=== PATIENT | female | born 1975 | race Caucasian/White ===

== ENCOUNTER 2021-03-22 10:50 | Outpatient (CLI) | payer BC, SELFPAY ==
--- NOTE | ~2021-03-22 | MM_ITS ---
EXAMINATION: MM screening [facility] BI w alessio HISTORY: Screening mammogram TECHNIQUE: Craniocaudal and mediolateral oblique 3-D tomosynthesis images were obtained and synthetic 2-D images were generated. CAD analysis was submitted and interpreted. COMPARISON: 12/30/2018 [id number] BREAST PARENCHYMAL COMPOSITION: There are scattered areas of fibroglandular density. FINDINGS: There is no evidence of suspicious mass, calcification, or architectural distortion to sugg est malignancy in either breast. There has been no suspicious interval change. IMPRESSION: 1. No mammographic evidence of malignancy. 2. Recommend routine screening mammography in one year. BI-RADS Category 1: Negative Reviewed, dictated and finalized at location A.
== END 2021-03-22 10:51 | disposition home or self-care (01) ==
LOC: ANHIMG 10:53
PROVIDERS: PCP Family Medicine; Visit Provider Nurse Practitioner Family
DX: Z12.31 Encounter for screening mammogram for malignant neoplasm of breast (principal)
CPT/HCPCS: 77063; 77067

== ENCOUNTER 2023-03-16 07:58 | Outpatient (CLI) | payer BC, SELFPAY ==
--- NOTE | ~2023-03-16 | MM_ITS ---
EXAMINATION: MM screening [facility] BI w alessio HISTORY: Screening mammogram TECHNIQUE: Craniocaudal and mediolateral oblique 3-D tomosynthesis images were obtained and synthetic 2-D images were generated. CAD analysis was submitted and interpreted. COMPARISON: March 22, 2021, December 30, 2018 bilateral screening mammogram examinations BREAST PARENCHYMAL COMPOSITION: There are scattered areas of fibroglandular density. FINDINGS: There is no evidence of suspicious mass, calcification, or architectural distortion to sugg est malignancy in either breast. There has been no suspicious interval change. IMPRESSION: 1. No mammographic evidence of malignancy. 2. Recommend routine screening mammography in one year. BI-RADS Category 1: Negative Reviewed, dictated and finalized at location B.
== END 2023-03-16 07:59 | disposition home or self-care (01) ==
LOC: ANHIMG 07:59
PROVIDERS: PCP Family Medicine; Visit Provider Physician Assistant
DX: Z12.31 Encounter for screening mammogram for malignant neoplasm of breast (principal)
CPT/HCPCS: 77063; 77067

== ENCOUNTER 2024-01-26 09:08 | Outpatient (CLI) | payer BC, SELFPAY ==
[2024-01-26 09:58] LABS: Strep Group A RT-PCR NOT DETECTED (Negative)
[2024-01-26 10:33] LABS: Influenza A QL RT-PCR Negative (Negative); Influenza B QL RT-PCR Negative (Negative); RSV RNA, RT-PCR Negative (Negative); SARS-CoV-2 RNA PCR Negative (Negative)
== END 2024-01-26 09:09 | disposition home or self-care (01) ==
LOC: ANHLAB 09:10
PROVIDERS: PCP Family Medicine; Visit Provider Physician Assistant
DX: R50.9 Fever, unspecified (principal); J02.9 Acute pharyngitis, unspecified; Z20.822 Contact with and (suspected) exposure to COVID-19
CPT/HCPCS: 87637; 87651

== ENCOUNTER 2024-06-01 10:07 | Outpatient (CLI) | payer BC, SELFPAY ==
--- NOTE | ~2024-06-01 | MM_ITS ---
EXAMINATION: MM screening [facility] BI w alessio HISTORY: Screening mammogram TECHNIQUE: Craniocaudal and mediolateral oblique 3-D tomosynthesis images were obtained and synthetic 2-D images were generated. CAD analysis was submitted and interpreted. COMPARISON: 03/16/2023, 03/22/2021, 12/30/2018 BREAST PARENCHYMAL COMPOSITION:Not Dense. There are scattered areas of fibroglandular density. FINDINGS: No suspicious mass, calcification, or architectural distortion are identified in either adilson ast to suggest malignancy. There has been no suspicious interval change. IMPRESSION: No mammographic evidence of malignancy. Recommend routine screening mammography in one year. BI-RADS Category 1: Negative Reviewed, dictated and finalized at location .
== END 2024-06-01 10:08 | disposition home or self-care (01) ==
LOC: ANHIMG 10:09
PROVIDERS: PCP Family Medicine; Visit Provider Family Medicine
DX: Z12.31 Encounter for screening mammogram for malignant neoplasm of breast (principal)
CPT/HCPCS: 77063; 77067

== ENCOUNTER 2024-08-04 02:12 | Day surgery (SDC) | payer BC, SELFPAY ==
[2024-07-14 10:32] VITALS: BMI 38.5
[2024-08-04 08:28] VITALS: BP 127/96; PULSE 66; RESP 18; TEMP 36.3; O2SAT 98; BMI 38.2
[2024-08-04] MEDS: LACTATED RINGERS 1,000 ML 150 ML IV CONT (08:32)
--- NOTE | 2024-08-04 09:06 | WPDANESEPPF ---
Anes - Initial Pre Proc Eval Procedure: Operation Date: 08/04/24 09:30 Proposed Procedures p Screening Colonoscopy - Isacc San MD Date/Time: 08/04/24 09:06 Surgeon: Isacc San MD Pre Op Diagnosis: Neoplasm screening Patient Data Age: 49 Gender: F Height: 1.57 m Weight: 94.7 kg Last Vital Signs Temp 97.4 F L 08/04/24 08:28 Pulse 66 08/04/24 08:28 Resp 18 08/04/24 08:28 BP 127/96 H 08/04/24 08:28 Pulse Ox 98 08/04/24 08:28 O2 Del Method Room Air 08/04/24 08:28 Allergies Allergy/AdvReac Type Severity Reaction Status Date / Time miconazole Allergy Mild ITCHING/BUR Verified 08/04/24 08:26 JULIET TAPE AdvReac Unknown REDDNESS Uncoded 08/04/24 08:26 Home Medications Medication Instructions Recorded Confirmed Type buspirone 5 mg tablet See Rx Instructions .Route 11/03/22 08/04/24 Rx .COMPLEX #90 tabs montelukast 10 mg tablet 10 mg PO DAILY #90 tabs 01/07/24 08/04/24 Rx (Singulair) lisinopril 10 mg tablet See Rx Instructions .Route 04/04/24 08/04/24 Rx .COMPLEX #90 tabs omeprazole 40 mg capsule,delayed 40 mg PO DAILY #90 caps 07/11/24 08/04/24 Rx release Patient hx anesthesia problems: none Family hx anesthesia problems: none Results Review: All pre-operative results and documents have been reviewed as part of the pre-operative evaluation. [facility] Past Medical History Medical History Arthralgia of both hands OLIVIER (generalized anxiety disorder) HTN (hypertension) Tobacco use Social History Social History Social History: Smoking packs per day: 0.5 Smoking cigarettes per day: 10.0 Smoking status: Current every day smoker Tobacco type: e-cigarettes/vaping Second hand tobacco smoke exposure: No Alcohol intake: current Drinks per week: 12 Substance use: never Substance use type: does not use Living arrangements: alone Occupation/Education: occupation Gender identity (if verbalized by the patient): Female Sexual Orientation (if Verbalized by the Patient): Straight or Heterosexual Anes - Eval Final PreProcedure Day of Procedure 08/04/24 09:06 Patient weight: obese Heart: regular rate and rhythm Lungs: clear to auscultation Airway: Mallampati scale class II Neurological: alert and oriented Last oral intake: >/= 8 hours ASA classification: III Emergent: no Anesthetic plan: proceed Anesthesia type and monitoring: general GIVS and standard monitoring Results Review: All pre-operative results and documents have been reviewed as part of the pre-operative evaluation. Informed Consent: The patient's anesthetic plan and its attendant risks and benefits were discussed with the patient/family/POA. Questions were solicited and answers provided to the satisfaction of the patient/family/POA.
--- NOTE | 2024-08-04 09:12 | PM.HPGS ---
History of Present Illness History of Present Illness Consent: Risks, benefits, and alternatives have been discussed and questions answered. Patient agrees to proceed with procedure. Chief complaint: Neoplasm screening Narrative: Liza Wise is a 49 year old female her for first screening colonoscopy Review of Systems Review of Systems: All systems reviewed & are unremarkable except as noted in HPI and below PMFSH Past Medical History Medical History Arthralgia of both hands Colon cancer screening OLIVIER (generalized anxiety disorder) HTN (hypertension) Tobacco use Social History Social History Social History: Smoking packs per day: 0.5 Smoking cigarettes per day: 10.0 Smoking status: Current every day smoker Tobacco type: e-cigarettes/vaping Second hand tobacco smoke exposure: No Alcohol intake: current Drinks per week: 12 Substance use: never Substance use type: does not use Living arrangements: alone Occupation/Education: occupation Gender identity (if verbalized by the patient): Female Sexual Orientation (if Verbalized by the Patient): Straight or Heterosexual Meds Home Medications and Allergies Home Medications Medication Instructions Recorded Confirmed Type buspirone 5 mg tablet See Rx Instructions .Route 11/03/22 08/04/24 Rx .COMPLEX #90 tabs montelukast 10 mg tablet 10 mg PO DAILY #90 tabs 01/07/24 08/04/24 Rx (Singulair) lisinopril 10 mg tablet See Rx Instructions .Route 04/04/24 08/04/24 Rx .COMPLEX #90 tabs omeprazole 40 mg capsule,delayed 40 mg PO DAILY #90 caps 07/11/24 08/04/24 Rx release Allergies Allergy/AdvReac Type Severity Reaction Status Date / Time miconazole Allergy Mild ITCHING/BUR Verified 08/04/24 08:26 JULIET TAPE AdvReac Unknown REDDNESS Uncoded 08/04/24 08:26 Vital Signs Vital Signs - 24 hr 08/04/24 08:28 Temperature 97.4 F L Pulse Rate 66 Respiratory Rate 18 Blood Pressure 127/96 H Pulse Oximetry 98 Oxygen Delivery Room Air Exam Const: General: comfortable and no acute distress HENMT: Face/Nose/Sinus: Normal nares present Eyes: General: appearance normal, both eyes and all related structures Neck: Neck: no JVD Resp: Auscultation: clear to auscultation bilaterally Cardio: Rate: regular rate Rhythm: regular rhythm GI: Inspection: non-distended GI Palp: Yes Soft to palpation Skin: General skin exam: normal color Neuro: General: gait normal Speech: normal speech Extrem: General: normal to inspection Psych: Mental Status: mental status grossly normal Assessment and Plan Assessment and plan (1) Colon cancer screening: Code(s): Z12.11 - Encounter for screening for malignant neoplasm of colon Status: Acute Assessment and Plan: colonoscopy
[2024-08-04 09:35] VITALS: BP 136/109; PULSE 65; RESP 17; O2SAT 97
[2024-08-04 09:46] VITALS: BP 154/100; PULSE 65; RESP 18; O2SAT 97
[2024-08-04 09:55] VITALS: BP 154/99; PULSE 53; RESP 16; O2SAT 100
== END 2024-08-04 10:00 | disposition home or self-care (01) ==
PROVIDERS: PCP Family Medicine; Visit Provider Internal Medicine Gastroenterology
PROC: 0DJD8ZZ Inspection of Lower Intestinal Tract, Via Natural or Artificial Opening Endoscopic (ICD-10-PCS; CPT 45378; principal; 2024-08-04 09:30)
DX: Z12.11 Encounter for screening for malignant neoplasm of colon (principal); K64.8 Other hemorrhoids; K57.30 Diverticulosis of large intestine without perforation or abscess without bleeding; F41.9 Anxiety disorder, unspecified; I10 Essential (primary) hypertension; F17.210 Nicotine dependence, cigarettes, uncomplicated; E66.9 Obesity, unspecified; Z68.38 Body mass index [BMI] 38.0-38.9, adult
CPT/HCPCS: 45378; J7120

== ENCOUNTER 2025-03-27 17:14 | Emergency (ER) | payer BC, SELFPAY ==
[2025-03-27 18:05] VITALS: BP 129/89; PULSE 71; RESP 16; TEMP 36.3; O2SAT 98
--- NOTE | 2025-03-27 18:08 | ED.URI ---
HPI - URI/Sore Throat General Chief Complaint: Upper Respiratory Infection Stated Complaint: cold Like Time Seen by Provider: 03/27/25 18:08 Source: patient Mode of arrival: ambulatory Limitations: no limitations History of Present Illness HPI Narrative: 50-year-old female presents with complaint of sore throat for 10 days. Reports postnasal drainage. States that she did have a cough but it resolved. No chest pain or shortness of breath. Denies congestion, sinus pressure but states feel heavy and my head like a sinus infection . Take Zyrtec and Singulair daily. All systems reviewed and negative except as noted above. Related Data Allergies Allergy/AdvReac Type Severity Reaction Status Date / Time miconazole AdvReac Mild ITCHING/BUR Verified 03/27/25 18:12 JULIET Review of Systems Review of Systems: CONSTITUTIONAL: Denies fever, chills, or sweats. EYES: Denies visual changes, redness, or discharge. ENT: Denies rhinorrhea, congestion . Reports sore throat, postnasal drainage, bilateral ear pressure CARDIOVASCULAR: Denies chest pain, palpitations, or edema. RESPIRATORY: Denies cough or dyspnea. GASTROINTESTINAL: Denies abdominal pain, nausea, vomiting, or diarrhea. GENITOURINARY: Denies dysuria or hematuria. SKIN: Denies rash or itching. MUSCULOSKELETAL: Denies back pain, joint pain, or myalgia. NEUROLOGIC: Denies headache, numbness, or weakness. PSYCHIATRIC: Denies anxiety or depression. All other systems reviewed are negative, except as documented in HPI. [facility] Past Medical History Medical History Colon cancer screening HTN (hypertension) OLIVIER (generalized anxiety disorder) Tobacco use Arthralgia of both hands Social History Social History Social History: Smoking packs per day: 0 Smoking cigarettes per day: 0.0 Smoking status: Former smoker Tobacco type: e-cigarettes/vaping Second hand tobacco smoke exposure: No Alcohol intake: current Drinks per week: 12 Substance use: never Substance use type: does not use Living arrangements: alone Occupation/Education: occupation Gender identity (if verbalized by the patient): Female Sexual Orientation (if Verbalized by the Patient): Straight or Heterosexual Comments At time of signature, agree with nursing past medical, surgical, social and family history. There is no relevant family history pertinent to the presenting complaint. Exam Narrative: GENERAL: This is a well-nourished, well-developed patient, in no apparent distress. HEAD: normocephalic, atraumatic. EYES: PERRL. Sclera clear/white. Vision is grossly intact. EARS: External ears normal, auditory canals clear and without drainage, fluid bilateral TMs without perforation. Hearing grossly intact. NOSE: External nose normal with no obvious nasal discharge, nares without redness, no rhinorrhea. THROAT: Mucous membranes moist, postnasal drainage, mild erythema. No significant swelling or exudates NECK: Neck supple, non-tender without lymphadenopathy, masses or thyromegaly. CARDIOVASCULAR: Regular rate and rhythm without murmurs, gallops, or rubs. RESPIRATORY: Clear to auscultation. Breath sounds equal bilaterally. No wheezes, rales, or rhonchi. SKIN: warm, Dry, intact with no suspicious lesions or rash, good texture and turgor. NEURO: awake, alert, and oriented to person, place and time. There were no obvious focal neurologic abnormalities. EXTREMITIES: No joint tenderness, effusion, or edema noted. No calf tenderness. Negative Homans sign bilaterally. BACK: Nontender without deformity. No CVA tenderness. Course Course Level of Care: Express Care Visit Vital Signs Vital signs: reviewed MDM - URI/Sore Throat MDM Narrative Medical decision making narrative: negative strep. Will treat patient with antibiotic for bacterial sinusitis, serous otitis media. Patient is well-appearing, nontoxic. Lungs clear to auscultation. Please be advised this is a medical document. It is intended for [id number] communication. It is written in medical language and may contain unfamiliar abbreviations or verbiage. Medical documents are intended to carry relevant information, facts as evident, and the clinical opinion of the practitioner at the time of the encounter. This report may have been done utilizing a voice recognition system. Attempts have been made to correct errors. However, there may be uncorrected grammatical, spelling, and recognition errors present. The file time of this note does not necessarily represent the time of service. Differential Diagnosis Differential diagnosis: Likely upper respiratory infection, otitis media, sinusitis, viral infection and pharyngitis Discharge Plan Discharge Clinical Impression: Acute serous otitis media of both ears, Acute bacterial sinusitis Patient Disposition: Home Condition: Stable Instructions: Antibiotic Form, Fluid In The Ear (Serous Otitis Media) (ED) Additional Instructions: your strep test was negative today. Take medications as prescribed. Continue Zyrtec and Singulair daily. Drink at least 64 oz of water a day. Place cool mist humidifier in bedroom your sleep. Follow-up with your doctor if symptoms are not improving. Patient Language: Jordanian Prescriptions: New amoxicillin 875 mg tablet 875 mg PO Q12H 10 Days Qty: 20 0RF methylprednisolone [Medrol (Connor)] 4 mg tablets,dose pack See Rx Instructions PO .COMPLEX Qty: 21 0RF Rx Instructions: orally per package directions No Action buspirone 10 mg tablet 10 mg PO TID PRN (Reason: anxiety) Qty: 90 0RF cyclobenzaprine 5 mg tablet 5 mg PO TID PRN (Reason: muscle spasm) Qty: 30 0RF lisinopril 20 mg tablet 40 mg PO DAILY Qty: 180 0RF omeprazole 40 mg capsule,delayed release(DR/EC) 40 mg PO DAILY Qty: 90 2RF montelukast [Singulair] 10 mg tablet 10 mg PO DAILY Qty: 90 2RF escitalopram oxalate 20 mg tablet 20 mg PO DAILY Qty: 30 2RF Follow-up/Referrals: Kvng Gee PA-C [Primary Care Provider] - Time of Disposition: 18:23
[2025-03-27 18:21] LABS: EDSTREPNEGPOS1 Negative (Negative)
--- OUTSIDE RECORDS SUMMARY | 2025-03-27 18:30 | XMS_ITS | Clinical Summary ---
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 Gender Identity Not on file Sexual Orientation Not on file Plan of Treatment Health Maintenance Due Date Last Done Comments Hepatitis C Virus (HCV) Screening 1973 TdaP Immunization 1973 Hepatitis B Immunization (1 of 3 - 19+ 3-dose series) 02/12/1992 Pap Smear 1994 Cervical Cancer Screening (CCS) 2003 HPV/Cotest 2003 Colonoscopy 2018 Colorectal Cancer Screening 2018 Cologuard 2023 Immunochemical Fecal Occult Blood 2023 Mammogram 2023 Pneumococcal Immunization (5 0+ years) (1 of 1 - PCV) 2023 Zoster Immunization (1 of 2) 2023 Influenza Immunization (#1) 2024 10/08/2017 SARS-COV-2 Immunization ( - season) 2024 Respiratory Syncytial Virus (RSV) Immunization (Adult) (1 - 1-dose 75+ series) 02/12/2048 Meningococcal Immunization (ACWY) Aged Out No longer eligible based on patient's age to complete this topic Pneumococcal Immunization Combined Aged Out No longer eligible based on patient's age to complete this topic Rotavirus Immunization Aged Out No lo nger eligible based on patient's age to complete this topic
== END 2025-03-27 18:26 | disposition home or self-care (01) ==
PROVIDERS: Emergency Provider Nurse Practitioner Family; PCP Physician Assistant
DX: H65.03 Acute serous otitis media, bilateral (principal); J01.90 Acute sinusitis, unspecified; I10 Essential (primary) hypertension
CPT/HCPCS: 87081; 87880; 99213; G0463

== ENCOUNTER 2025-07-20 13:37 | Outpatient (CLI) | payer BC, SELFPAY ==
--- NOTE | ~2025-07-20 | MM_ITS ---
EXAMINATION: MM screening [facility] BI w alessio HISTORY: Screening mammogram TECHNIQUE: Craniocaudal and mediolateral oblique 3-D tomosynthesis images were obtained and synthetic 2-D images were generated. CAD analysis was submitted and interpreted. COMPARISON: 06/01/2024, 03/16/2023, 03/22/2021 BREAST PARENCHYMAL COMPOSITION:Not Dense. There are scattered areas of fibroglandular density. FINDINGS: No suspicious mass, calcification, or architectural distortion are identified in either breast to suggest malignancy. There has been no suspicious interval change. IMPRESSION: No mammographic evidence of malignancy. Recommend routine screening mammography in one year. BI-RADS Category 1: Negative Reviewed, dictated and finalized at location .
--- OUTSIDE RECORDS SUMMARY | 2025-07-20 13:50 | XMS_ITS | Clinical Summary ---
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 Gender Identity Not on file Sexual Orientation Not on file Plan of Treatment Health Maintenance Due Date Last Done Comments Hepatitis C Virus (HCV) Screening 1973 TdaP Immunization 1973 Hepatitis B Immunization (1 of 3 - 19+ 3-dose series) 02/12/1992 Pap Smear 1994 Cervical Cancer Screening (CCS) 2003 HPV/Cotest 2003 Cologuard 2018 Colonoscopy 2018 Colorectal Cancer Screening 2018 Immunochemical Fecal Occult Blood 2018 Pneumococcal Immunization (5 0+ years) (1 of 1 - PCV) 2023 Zoster Immunization (1 of 2) 2023 SARS-COV-2 Immunization (1 - season) 2024 Influenza Immunization (#1) 2025 10/08/2017 Respiratory Syncytial Virus (RSV) Immunization (Adult) (1 - 1-dose 75+ series) 02/12/2048 Human Papillomavirus (HPV) Immunization Aged Out No longer eligible b ased on patient's age to complete this topic Meningococcal Immunization (ACWY) Aged Out No longer eligible based on patient's age to complete this topic Rotavirus Immunization Aged Out No lo nger eligible based on patient's age to complete this topic
--- OUTSIDE RECORDS SUMMARY | 2025-07-20 13:50 | XMS_ITS | Clinical Summary ---
Author Organization [facility] Address [address] [place] [address] Care Team Providers Care Electronic Die Maker Name Role Phone No, Physician Primary Care Provider [phone] Allergies Active Allergy Reactions Criticality Noted Date Comments Adhesive Blisters High 06/23/2025 Medications amoxicillin (AMOXIL) 875 mg tablet 03/27/2025 Active escitalopram (LEXAPRO) 20 mg tablet 03/22/2025 Active escitalopram (LEXAPRO) 10 mg tablet 04/28/2025 Active lisinopriL (PRINIVIL,ZESTRIL) 20 mg tablet 04/27/2025 Active lisinopriL (PRINIVIL,ZESTRIL) 40 mg tablet 04/28/2025 Active methylPREDNISolone (MEDROL DOSEPACK) 4 mg Dosepack 03/27/2025 Activ e montelukast (SINGULAIR) 10 mg tablet 04/01/2025 Active omeprazole (PriLOSEC) 40 mg capsule 04/07/2025 Active Hospital, Clinic, or Other Facility Administered Medication Ordered Dose Route Frequency Start Date End Date Status lidocaine (XYLOCAINE) 10 mg/mL (1 %) injection 1 mLIndications:Admi nistration of Local Anesthesia 1 mL One-Time Injection 06/23/2025 06/23/2025 Ended lidocaine (XYLOCAINE) 10 mg/mL (1 %) injection 1 mLIndications:Admi nistration of Local Anesthesia 1 mL One-Time Injection 06/23/2025 06/23/2025 Ended methylPREDNISolone acetate (DEPO-medrol) injection 40 mgIndications:Bila teral carpal tunnel syndrome 40 mg intra-artic One-Time Injection 06/23/2025 06/23/2025 Ended methylPREDNISolone acetate (DEPO-medrol) injection 40 mgIndications:Bila teral carpal tunnel syndrome 40 mg intra-artic One-Time Injection 06/23/2025 06/23/2025 Ended lidocaine (XYLOCAINE) 10 mg/mL (1 %) injection 1 mLIndications:Admi nistration of Local Anesthesia 1 mL One-Time Injection 06/23/2025 06/23/2025 Ended lidocaine (XYLOCAINE) 10 mg/mL (1 %) injection 1 mLIndications:Admi nistration of Local Anesthesia 1 mL One-Time Injection 06/23/2025 06/23/2025 Ended methylPREDNISolone acetate (DEPO-medrol) injection 40 mgIndications:Bila teral carpal tunnel syndrome 40 mg intra-artic One-Time Injection 06/23/2025 06/23/2025 Ended methylPREDNISolone acetate (DEPO-medrol) injection 40 mgIndications:Bila teral carpal tunnel syndrome 40 mg intra-artic One-Time Injection 06/23/2025 06/23/2025 Ended Active Problems No known active problems Encounters Date Type Department Care Team Description 06/23/2025 8:45 AM CDT Office Visit [facility] Hand Surgery [address] [place] [phone] Mena Vyas MD Bilateral carpal tunnel syndrome (Primary Dx) 06/12/2025 Telephone [facility] Hand Surgery [address] [place] [phone] Mena Vyas MD soon surgery 05/24/2025 Telephone [facility] Hand Surgery [address] [place] [phone] Rachel Hamlin MA 05/22/2025 1:15 PM CDT Office Visit [facility] Hand Surgery [address] [place] [phone] Mena Vyas MD Bilateral carpal tunnel syndrome (Primary Dx); Trigger finger, unspecified finger, unspecified laterality; Pain in both hands 05/15/2025 1:00 PM CDT Therapy [facility] OP Physical Therapy [address] [address] Bilateral hand pain 05/05/2025 Orders Only [facility] Medicine Pathology Outreach [address] [place] [address] Unknown, Notinfile 04/21/2025 - 04/21/2025 11:59 PM CDT Hospital Encounter [facility] [address] [facility] [place] [address] Discharge Disposition: Discharge to home or self care from Last 3 Months Social History Tobacco Use Types Packs/Day Years Used Date Smoking Tobacco: Never Tobacco Cessation:Counseling Given: Not Answered Comments Unknown Sex and Gender Information Value Date Recorded Sex Assigned at Not on file 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 Gender Identity Female 07/12/2025 11:00 AM CDT Sexual Orientation Not on file Obstetrics History Last Filed Vital Signs Vital Sign Reading Time Taken Comments Blood Pressure - - Pulse - - Temperature - - Respiratory Rate - - Oxygen Saturation - - Inhaled Oxygen Concentration - - Weight 95.3 kg (210 lb) 05/22/2025 1:42 PM CDT Height 157.5 cm (5' 2) 05/22/2025 1:42 PM CDT Body Mass Index 38.41 05/22/2025 1:42 PM CDT Plan of Treatment Health Maintenance Due Date Last Done Comments Breast Cancer Screening-Mammogram 1975 Cervical Cancer Screening 1975 Colon Cancer Screening-Colonoscopy 1975 Depression Screening 1975 Hepatitis C Screening 1975 DTaP/Tdap/Td Vaccine (1 - Tdap) 02/12/1984 Hepatitis B Screening 1991 Regular Well Visit/Exam 18-64 1991 Zoster Vaccine (1 of 2) 2023 Covid-19 Vaccine (3 - 2023-2 5 season) 2024 10/07/2021, 02/01/2021 Influenza Vaccine (#1) 2025 7, 09/14/2013 Pneumococcal vaccine <65 Aged Out No longer eligible based on patient's age to complete this topic Procedures Procedure Name Priority Date/Time Associated Diagnosis Comments VA ARTHROCENTESIS ASPIR&/INJ SMALL JT/BURSA W/O US Routine 06/23/2025 8:45 AM CDT Bilateral carpal tunnel syndrome VA ARTHROCENTESIS ASPIR&/INJ SMALL JT/BURSA W/O US Routine 06/23/2025 8:45 AM CDT Bilateral carpal tunnel syndrome VA INJECTION THERAPEUTIC CARPAL TUNNEL Routine 06/23/2025 8:45 AM CDT Bilateral carpal tunnel syndrome SURGICAL PATHOLOGY Routine 05/05/2025 12 :20 PM CDT MRI TRANSFER OF OUTSIDE FILMS Routine 04/21/2025 12:00 AM CDT from Last 3 Months Results * VA ARTHROCENTESIS ASPIR&/INJ SMALL JT/BURSA W/O US (06/23/2025 8:45 AM CDT) Mena Cool MD - 06/23/2025 8:45 AM CDT Mena Vyas MD 06/23/2025 10:10 AM Small Joint (Foot, Fingers, Toes) Injection: L thumb CMC Performed by: Mena Vyas MD Authorized by: Mena Vyas MD Small Joint Injection/Aspiration: Consent Given by: Patient Verbal consent obtained?: Yes Written consent obtained?: No Supporting Documentation: Indications: Pain Procedure Details: Location: Thumb Site: L thumb CMC Prep: patient was prepped and draped in usual sterile fashion Medications: 1 mL lidocaine 10 mg/mL (1 %); 40 mg methylPREDNISolone acetate 40 mg/mL Patient tolerance: Patient tolerated the procedure well with no immediate complications us Mena Vyas MD IN CLINIC/BEDSIDE ORDERAB LES Final Result * VA ARTHROCENTESIS ASPIR&/INJ SMALL JT/BURSA W/O US (06/23/2025 8:45 AM CDT) Mena Cool MD - 06/23/2025 8:45 AM CDT Mena Vyas MD 06/23/2025 10:10 AM Small Joint (Foot, Fingers, Toes) Injection: R thumb CMC Performed by: Mena Vyas MD Authorized by: Mena Vyas MD Small Joint Injection/Aspiration: Consent Given by: Patient Verbal consent obtained?: Yes Written consent obtained?: No Supporting Documentation: Indications: Pain Procedure Details: Location: Thumb Site: R thumb CMC Prep: patient was prepped and draped in usual sterile fashion Medications: 1 mL lidocaine 10 mg/mL (1 %); 40 mg methylPREDNISolone acetate 40 mg/mL Patient tolerance: Patient tolerated the procedure well with no immediate complications Mena Vyas MD IN CLINIC/BEDSIDE ORDERAB LES Final Result * VA INJECTION THERAPEUTIC CARPAL TUNNEL (06/23/2025 8:45 AM CDT) Narrative Mena Vyas MD - 06/23/2025 8:45 AM CDT Mena Vyas MD 06/23/2025 10:10 AM Carpal Tunnel Injection Performed by: Mena Vyas MD Authorized by: Mena Vyas MD Carpal Tunnel Injection: Consent Given by: Patient Site marked: the procedure site was marked Timeout: prior to procedure the correct patient, procedure, and site was verified Verbal consent obtained?: Yes Supporting Documentation: Indications: Therapeutic benefit Procedure Details: Condition: carpal tunnel Site: Bilateral carpal tunnel Prep: patient was prepped and draped in usual sterile fashion Medications Right Carpal Tunnel: 1 mL lidocaine 10 mg/mL (1 %); 40 mg methylPREDNISolone acetate 40 mg/mL Medications Left Carpal Tunnel: 1 mL lidocaine 10 mg/mL (1 %); 40 mg methylPREDNISolone acetate 40 mg/mL Patient tolerance: Patient tolerated the procedure well with no immediate complications Mena Vyas MD IN CLINIC/BEDSIDE ORDERAB LES Final Result * Surgical pathology (05/05/2025 12:20 PM CDT) Skin, shave biopsy 05/05/2025 12:20 PM CDT 05/08/2025 7:27 AM CDT Narrative 05/10/2025 8:45 AM CDT EPIC results best viewed via link to PDF [facility] [address] [place] [address], [address], [place] [address] [email or web address] Note to Patients: This report may contain a detailed description of human tissue sent by a health care provider to the laboratory for pathologic evaluation. The content of this report is essential for diagnosis and may provide important critical findings. This information may be unfamiliar to patients to review without a medical professional present. It is advised that the patient review this report in the presence of a health care provider who can answer questions and explain the details. FINAL REPORT Patient Information: PATIENT NAME: LIZA FORD SEX: F : 1975 (Age: 50) Specimen Information: COLLECTED: 05/05/2025 RECEIVED: 05/08/2025 REPORTED: 05/10/2025 Submitting Physician Information: Africa Parson, [facility], [address] [place] [address], DERMATOPATHOLOGY REPORT RESULTS DIAGNOSIS: A. SKIN, EPIGASTRIC SKIN, SHAVE BIOPSY: JUNCTIONAL MELANOCYTIC NEVUS, LENTIGINOUS TYPE, RUBBED B. SKIN, RIGHT LATERAL ABDOMEN, SHAVE BIOPSY: COMPOUND MELANOCYTIC NEVUS C. SKIN, RIGHT BUTTOCK, SHAVE BIOPSY: JUNCTIONAL MELANOCYTIC NEVUS, LENTIGINOUS TYPE, RUBBED dh/lac By this signature, I attest that the above diagnosis is based upon my personal examination of the slides(and/or other material indicated in the diagnosis). Carolin Kilpatrick M.D. Report Electronically Reviewed and Signed Out By Carolin Kilpatrick M.D. 05/10/2025 08:45:41 CLINICAL INFORMATION A-C. NEOPLASM OF UNCERTAIN BEHAVIOR VS. DYSPLASTIC NEVUS SPECIMEN DATA MICROSCOPIC DESCRIPTION: A. There is a proliferation of enlarged, relatively uniform melanocytes arranged predominantly as solitary units but also as small nests within the epidermis at the dermo-epidermal junction. There is also reticulated epidermal hyperplasia and hyperpigmentation. (D22.9) B. Enlarged monomorphous melanocytes are arranged as solitary units and nests at the dermo-epidermal junction and as uniform nests, cords and strands within the dermis. (D22.9) C. There is a proliferation of enlarged, relatively uniform melanocytes arranged predominantly as solitary units but also as small nests within the epidermis at the dermo-epidermal junction. There is also reticulated epidermal hyperplasia and hyperpigmentation. (D22.9) GROSS DESCRIPTION: A. Received in a formalin-containing bottle is a superficial fragment of variegated, pale lazar, brown and semi-translucent skin measuring 0.6 by 0.7 by 0.1 cm. The surgical margin is inked blue. The specimen is sectioned into 3 pieces and submitted entirely in a single cassette. Due to shrinkage, measurements may be different than those at time of procedure. B. Received in a formalin-containing bottle is a superficial fragment of brown, finely scaling and semi-translucent skin measuring 0.7 by 0.5 by 0.1 cm. The surgical margin is inked blue. The specimen is sectioned into 2 pieces and submitted entirely in a single cassette. Due to shrinkage, measurements may be different than those at time of procedure. C. Received in a formalin-containing bottle are two superficial fragments of variegated, pale lazar, brown and finely scaling skin measuring 0.4 by 0.3 by 0.1 cm and 0.4 by 0.2 by 0.1 cm. The surgical margins are inked blue. The specimen is submitted entirely in a single cassette. Due to shrinkage, measurements may be different than those at time of procedure. exr/anc ICD-9 ZSD.407 ZSD.877 Clerical Data A; 49552 B; 29625 C; 27133 The characteristics of special, immunohistochemical, and immunofluorescence stains and in-situ hybridization tests performed by the [facility] were deemed acceptable in ongoing quality control analyst measures and in compliance with regulations drawn from the Clinical Laboratory Improvement Act iy0320 (CLIA '88). Control reactions for all stains performed were deemed adequate and appropriate by a pathologist prior to evaluation of patient tissue. Some diagnoses were rendered with the assistance of laboratory-developed tests utilizing analyte-specific reagents; the performance characteristic of these tests were determined by [facility] and are not cleared or approved by the [place] Food an Drug administration. Laboratory developed test may only be performed in a facility that is certified by the [facility] as a high-complexity laboratory under CLIA '88. These tests are used for clinical purposes and are not investigational. us Notinfile Unknown LAB PATHOLOGY ORDERABLES Final Result * MRI Outside Reference (04/21/2025 12:00 AM CDT) Narrative NOVA - 05/18/2025 11:51 AM CDT This order has been auto-finalized and does not contain a result. us Provider Transcribed Order IMG MRI PROCEDURES Fi nal Result [id number] from Last 3 Months Insurance [email or web address] CHOICE [employer] ACCESS CHOICE Care Teams Electronic Die Maker Relationship Specialty Start Date End Date No, Physician PCP - General 06/14/25
== END 2025-07-20 13:38 | disposition home or self-care (01) ==
LOC: ANHFOHIMG 13:39
PROVIDERS: PCP Family Medicine; Visit Provider Physician Assistant
DX: Z12.31 Encounter for screening mammogram for malignant neoplasm of breast (principal)
CPT/HCPCS: 77063; 77067